=== PATIENT | male | born 1985 | race African-American/Black ===

== ENCOUNTER 2018-12-21 19:22 | Emergency (ER) | payer BC, MEDICAID ==
[~2018-12-21] VITALS: Ht 167.6 cm; Wt 82.0 kg
[2018-12-22 00:01] VITALS: BP 128/78
== END 2018-12-22 00:02 | disposition home or self-care (01) ==
LOC: ER 19:22
DX: M54.6 Pain in thoracic spine (principal); R06.02 Shortness of breath; W11.XXXA Fall on and from ladder, initial encounter; Y93.89 Activity, other specified; Y92.89 Other specified places as the place of occurrence of the external cause; Y99.8 Other external cause status
CPT/HCPCS: 71045; 72070; 99283

== ENCOUNTER 2020-05-13 14:37 | Emergency (ER) | payer BC ==
[~2020-05-13] VITALS: Ht 167.6 cm; Wt 75.0 kg
[2020-05-13 16:10] LABS: CLARITY URINE CLEAR (CLEAR); COLOR URINE YELLOW (YELLOW); KETONES URINE NEGATIVE (NEGATIVE); LEUKOCYTE ESTERASE URINE TRACE (NEGATIVE); NITRITE URINE NEGATIVE (NEGATIVE); OCCULT BLOOD URINE NEGATIVE (NEGATIVE); PH URINE >=9.0 (4.5-8.0); PROTEIN URINE NEGATIVE (NEGATIVE); SPECIFIC GRAVITY URINE 1.018 (1.005-1.030)
[2020-05-13 16:16] LABS: BASOPHILS % 0.3 % (0.0-2.0); EOSINOPHILS % 0.2 % (0.0-5.0); HEMATOCRIT. 47.7 % (42.0-52.0); HEMOGLOBIN. 16.1 g/dL (14.0-18.0); LYMPHOCYTES % 11.9 % (20.0-50.0); MEAN CORPUSCULAR HEMOGLOBIN 31.8 pg (28.0-32.0); MEAN CORPUSCULAR VOLUME 93.9 fL (80.0-94.0); MEAN PLATELET VOLUME 9.7 fl (7.4-10.4); MONOCYTES % 4.9 % (2.0-8.0); NEUTROPHILS % 82.7 % (40.0-76.0); PLATELET 191 x1000/uL (130-400); RED BLOOD CELL COUNT 5.08 mill/uL (4.7-6.1); RED CELL DISTRIBUTION WIDTH 13.6 % (11.6-14.6)
[2020-05-13 16:21] LABS: CHLORIDE 103 mEq/L (98-107)
[2020-05-13 17:32] VITALS: BP 124/78
== END 2020-05-13 17:35 | disposition home or self-care (01) ==
LOC: ER 14:37
DX: R55 Syncope and collapse (principal)
CPT/HCPCS: 80053; 81003; 85025; 93005; 99285

== ENCOUNTER 2021-06-07 12:27 | Emergency (ER) | payer BC ==
[~2021-06-07] VITALS: Ht 177.8 cm; Wt 77.0 kg
[2021-06-07 12:31] VITALS: BP 116/84
== END 2021-06-07 15:31 | disposition home or self-care (01) ==
LOC: ER 12:43
DX: R09.89 Other specified symptoms and signs involving the circulatory and respiratory systems (principal); M54.2 Cervicalgia
CPT/HCPCS: 70490; 99284